=== PATIENT | male | born 1955 | race Two or more races ===

== ENCOUNTER 2017-09-23 11:14 | Emergency (ER) | payer MEDICAID ==
[~2017-09-23] VITALS: Ht 170.2 cm; Wt 95.3 kg
[2017-09-23] MEDS ORDERED: cloNIDine HCL 0.1 MG TAB PO ONE (14:15)
[2017-09-23 15:11] VITALS: BP 135/96
== END 2017-09-23 15:19 | disposition home or self-care (01) ==
LOC: ER 11:14
DX: H10.33 Unspecified acute conjunctivitis, bilateral (principal); I10 Essential (primary) hypertension; Z91.19 Patient's noncompliance with other medical treatment and regimen